=== PATIENT | male | born 1935 | race Caucasian/White ===

== ENCOUNTER 2018-01-08 10:58 | Emergency (ER) | payer OTHER ==
[~2018-01-08] VITALS: Ht 177.8 cm; Wt 79.0 kg
[~2018-01-08 10:58] MED LIST: ADVAI100I PO; CAPT25TA2 PO; FISH100020 PO; LOVA20TA PO; PLAV75TA PO; ST JTAB PO; ULTR50TA PO
[2018-01-08 11:01] VITALS: BP 203/77; PULSE 71; RESP 16; TEMP 97.4; O2SAT 96
--- NOTE | 2018-01-08 11:11 | PD ---
HPI Chief Complaint: GI Complaint Time Seen by Provider: 11:11 Travel History International Travel<30 days: No Contact w/Intl Traveler<30days: No Traveled to known affect area: No History of Present Illness HPI 82-year-old male came to the emergency room with history of black color stool for past week and a half. Patient says initially this started as a diarrhea which lasted for 2 days. The diarrhea is gone and now he has noticed that the stool has been dark in color. Today he called his primary care to let them know and they asked them to come to the emergency room to be examined. Patient is on Plavix. He also has history of colon cancer that was resected and treated 15 years ago. Patient has not had a colonoscopy in almost 5 years. Patient denies of any abdominal pain or nausea or vomiting. He was hypertensive in triage. Patient does not appear to be in any significant distress. Last bowel movement was last night. PFSH Past Medical History Narrative Medical List of his past medical, surgical, social and family history is reviewed from the nursing note. Hx Anticoagulant Therapy: Yes (PLAVIX) Arthritis: Yes Asthma: No Heart Rhythm Problems: No Cancer: Yes (COLON 2000) Cardiovascular Problems: No High Cholesterol: Yes (on medication ) Chemotherapy: Yes Chest Pain: No Congestive Heart Failure: No COPD: Yes Diabetes: No Diminished Hearing: Yes Endocrine: No Genitourinary: No Hepatitis: No Hiatal Hernia: No Hypertension: Yes (HX OF HIGH BLOOD PRESSURE) Immune Disorder: No Musculoskeletal: No Neurologic: No Psychiatric: No Reproductive: No Respiratory: Yes (COPD) Immunizations Current: Yes Radiation Therapy: Yes Sleep Apnea: No Thyroid Disease: No Past Surgical History Abdominal Surgery: Yes (COLECTOMY,LIH,) AICD: No Arteriovenous Shunt: No Cardiac Surgery: No Ear Surgery: No Endocrine Surgery: No Eye Surgery: Yes (CATARACT SX BILAT.) Genitourinary Surgery: No Gynecologic Surgery: No Insulin Pump: No Joint Replacement: No Oral Surgery: No Pacemaker: No Thoracic Surgery: No Other Surgery: Yes Social History Alcohol Use: Yes (APPROX 1 PER WEEK) Tobacco Use: Yes (/ PPD) Substance Use: No Allergies-Medications (Allergen,Severity, Reaction): Coded Allergies: No Known Allergies (Verified Adverse Reaction, Unknown, 01/08/18) Comments List of his allergies reviewed from the nursing note. Reported Meds & Prescriptions Reported Meds & Active Scripts Active Reported Plavix (Clopidogrel Bisulfate) 75 Mg Tab 75 Mg PO DAILY Advair Diskus 100/50 (Salmeterol Xinafoate/Fluticasone) Fluticasone/Salmeterol 100/50 Inh 1 Puff PO BID Capoten 25 mg (Captopril) 25 Mg Tab 1 Tab PO DAILY Fish Oil ([place]-3 Fatty Acids) 1,000 Mg Cap 1,000 Mg PO TID Ultram (Tramadol HCl) 50 Mg Tab 50 Mg PO BID Aspirin Ec Low Strength (Aspirin) 81 Mg Tab 81 Mg PO DAILY Lovastatin 20 Mg Tab 20 Mg PO HS Plavix (Clopidogrel Bisulfate) 75 Mg Tab 75 Mg PO DAILY Narrative Medication List of his home medications reviewed from the nursing note. Review of Systems Except as stated in HPI: all other systems reviewed are Neg Physical Exam Narrative GENERAL: Awake, alert, no obvious distress, elderly SKIN: Focused skin assessment warm/dry. HEAD: Atraumatic. Normocephalic. EYES: Pupils equal and round. No scleral icterus. No injection or drainage. ENT: No nasal bleeding or discharge. Mucous membranes pink and moist. NECK: Trachea midline. No JVD. CARDIOVASCULAR: Regular rate and rhythm. No murmur appreciated. RESPIRATORY: No accessory muscle use. Clear to auscultation. Breath sounds equal bilaterally. GASTROINTESTINAL: Abdomen soft, non-tender, nondistended. Hepatic and splenic margins not palpable. MUSCULOSKELETAL: No obvious deformities. No clubbing. No cyanosis. No edema. NEUROLOGICAL: Awake and alert. No obvious cranial nerve deficits. Motor grossly within normal limits. Normal speech. PSYCHIATRIC: Appropriate mood and affect; insight and judgment normal. Data Data Last Documented VS Vital Signs Date Time Temp Pulse Resp B/P (MAP) Pulse Ox O2 Delivery O2 Flow Rate FiO2 01/08/18 13:45 65 16 153/69 (97) 98 Room Air 01/08/18 11:01 97.4 Orders Orders Complete Blood Count With Diff (01/08/18 11:24) Comprehensive Metabolic Panel (01/08/18 11:24) Lipase (01/08/18 11:24) Prothrombin Time / Inr (Pt) (01/08/18 11:24) Ct Abd/Pel W Iv Contrast(Rout) (01/08/18 11:24) Iv Access Insert/Monitor (01/08/18 11:24) Ecg Monitoring (01/08/18 11:24) Oximetry (01/08/18 11:24) Sodium Chlor 0.9% 1000 Ml Inj (Ns 1000 M (01/08/18 11:24) Sodium Chloride 0.9% Flush (Ns Flush) (01/08/18 11:30) Diatrizoate Liq ([place] Liq) (01/08/18 11:29) Oral Contrast - Adult (01/08/18 11:45) Iohexol 350 Inj (Omnipaque 350 Inj) (01/08/18 12:57) Ed Discharge Order (01/08/18 13:30) Labs Laboratory Tests Test 01/08/18 11:25 White Blood Count 8.1 TH/MM3 Red Blood Count 4.35 MIL/MM3 Hemoglobin 12.3 GM/DL Hematocrit 37.7 % Mean Corpuscular Volume 86.6 FL Mean Corpuscular Hemoglobin 28.2 PG Mean Corpuscular Hemoglobin Concent 32.5 % Red Cell Distribution Width 15.4 % Platelet Count 299 TH/MM3 Mean Platelet Volume 7.2 FL Neutrophils (%) (Auto) 58.9 % Lymphocytes (%) (Auto) 23.3 % Monocytes (%) (Auto) 13.8 % Eosinophils (%) (Auto) 3.4 % Basophils (%) (Auto) 0.6 % Neutrophils # (Auto) 4.8 TH/MM3 Lymphocytes # (Auto) 1.9 TH/MM3 Monocytes # (Auto) 1.1 TH/MM3 Eosinophils # (Auto) 0.3 TH/MM3 Basophils # (Auto) 0.0 TH/MM3 CBC Comment DIFF FINAL Differential Comment Prothrombin Time 10.7 SEC Prothromb Time International Ratio 1.1 RATIO Blood Urea Nitrogen 15 MG/DL Creatinine 0.81 MG/DL Random Glucose 83 MG/DL Total Protein 7.1 GM/DL Albumin 3.6 GM/DL Calcium Level 8.6 MG/DL Alkaline Phosphatase 128 U/L Aspartate Amino Transf (AST/SGOT) 19 U/L Alanine Aminotransferase (ALT/SGPT) 21 U/L Total Bilirubin 0.2 MG/DL Sodium Level 136 MEQ/L Potassium Level 4.1 MEQ/L Chloride Level 102 MEQ/L Carbon Dioxide Level 28.4 MEQ/L Anion Gap 6 MEQ/L Estimat Glomerular Filtration Rate 91 ML/MIN Lipase 124 U/L [facility] Medical Decision Making Medical Screen Exam Complete: Yes Emergency Medical Condition: Yes Medical Record Reviewed: Yes Differential Diagnosis Upper GI bleed, lower GI bleed Narrative Course 1:04 PM blood test results of back and within acceptable limits. Awaiting for the CT of the abdomen and pelvis to be resulted. He was given 1 L of IV fluid bolus. If the CT is negative I'll discharge him home. He'll need to follow up with his primary care needs to refer him to a GI specialist or a colorectal surgeon for colonoscopy. 1:[address] scan report came back. As per the radiologist this an incidental finding of abdominal aortic aneurysm that in comparison from the past CT has grown in size from 3.4 to 4.4 centimeter. Other than that there aren't any significant findings. I've discussed this with the patient and his was present in the room this time. Patient is aware of his aortic aneurysm. He does have a physician who checks it. I have urged him to discuss this with that physician. I'll discharge him home at this point. Procedures EKG Prior to Arrival: No Diagnosis Primary Impression: Dark stools Additional Impression: Abdominal aortic aneurysm (AAA) >39 mm diameter Referrals: Primary Care Physician 3 days Additional Instructions: Please follow-up with your primary care physician Lala refer you to a GI specialist if his symptoms continue. He went to discuss about your abdominal aortic aneurysm with your vascular surgeon who is following up on the aneurysm annually. Return to the ER if the condition worsens or any other new concerns. Med/Other Pt SpecificInfo: No Change to Meds Disposition: 01 DISCHARGE HOME Condition: Stable Jonh Renae MD Jan 08, 2018 11:11
[2018-01-08] MEDS ORDERED: PLAV75TA29 PO (11:18)
[2018-01-08] MEDS ORDERED: SODIUM CHLOR 0.9% 1000 ML INJ 1,000 ML IV SCH (11:24)
[2018-01-08 11:27] VITALS: O2SAT 97
[2018-01-08] MEDS ORDERED: DIATRIZOATE MEGLUM/DIATRIZOATE SOD 9 ML CUP ONE (11:29)
[2018-01-08] MEDS ORDERED: SODIUM CHLORIDE 0.9% FLUSH 10 ML FLUSH IV FLUSH PRN (11:30)
[2018-01-08 11:35] LABS: WHITE BLOOD COUNT 8.1 TH/MM3 (4.0-11.0)
[2018-01-08 11:36] LABS: AUTOMATED NEUTROPHIL # 4.8 TH/MM3 (1.8-7.7); BASOPHIL % 0.6 % (0.0-2.0); EOSINOPHIL # 0.3 TH/MM3 (0-0.4); EOSINOPHIL % 3.4 % (0.0-4.0); HEMATOCRIT 37.7 % (39.0-51.0); HEMOGLOBIN 12.3 GM/DL (13.0-17.0); LYMPH % 23.3 % (9.0-44.0); LYMPHOCYTE # 1.9 TH/MM3 (1.0-4.8); MEAN CELL VOLUME 86.6 FL (80.0-100.0); MEAN CORPUSCULAR HEMOGLOBIN 28.2 PG (27.0-34.0); MEAN CORPUSCULAR HGB CONC 32.5 % (32.0-36.0); MEAN PLATELET VOLUME 7.2 FL (7.0-11.0); MONO % 13.8 % (0.0-8.0); MONOCYTE # 1.1 TH/MM3 (0-0.9); NEUT % 58.9 % (16.0-70.0); PLATELET COUNT 299 TH/MM3 (150-450); RED BLOOD COUNT 4.35 MIL/MM3 (4.50-5.90); RED CELL DISTRIBUTION WIDTH 15.4 % (11.6-17.2)
[2018-01-08 11:43] LABS: CHLORIDE 102 MEQ/L (98-107); SODIUM (NA) 136 MEQ/L (136-145)
[2018-01-08 11:46] LABS: CALCIUM 8.6 MG/DL (8.5-10.1); INTERNATIONAL NORMALIZED RATIO 1.1 RATIO; PROTHROMBIN TIME - PATIENT 10.7 SEC (9.8-11.6)
[2018-01-08 11:47] LABS: ALBUMIN 3.6 GM/DL (3.4-5.0); BICARBONATE 28.4 MEQ/L (21.0-32.0); BLOOD UREA NITROGEN 15 MG/DL (7-18); GLUCOSE,RANDOM 83 MG/DL (74-106)
[2018-01-08 11:50] LABS: ALT (GPT) 21 U/L (12-78); AST (GOT) 19 U/L (15-37); CREATININE 0.81 MG/DL (0.60-1.30); GLOMERULAR FILTRATION RATE 91 ML/MIN (>89)
[2018-01-08 11:52] LABS: TOTAL BILIRUBIN ADULT 0.2 MG/DL (0.2-1.0); TOTAL PROTEIN 7.1 GM/DL (6.4-8.2)
[2018-01-08 11:53] LABS: ALKALINE PHOSPHATASE 128 U/L (45-117)
[2018-01-08 12:06] VITALS: BP 165/84; PULSE 63; RESP 16; O2SAT 97
[2018-01-08] MEDS ORDERED: IOHEXOL 350 MG/ML 10 ML VIAL (for RAD DIAG) IVCONTRAST ONE (12:57)
--- NOTE | 2018-01-08 13:17 | RADRPT ---
EXAM DATE/TIME: 01/08/2018 12:47 [facility] COMPARISON: CT ABDOMEN & PELVIS W CONTRAST, July 21, 2010, 13:12. INDICATIONS : Abdominal pain with dark stool x 1 week. IV CONTRAST: 85 cc Omnipaque 350 (iohexol) IV ORAL CONTRAST: Prescribed oral contrast ingested. RADIATION DOSE: 12.29 CTDIvol (mGy) MEDICAL HISTORY : Carcinoma, colon. Peripheral vascular disease. Chronic obstructive pulmonary disease.Hypertension. SURGICAL HISTORY : Colon resection. Inguinal hernia repair. ENCOUNTER: Initial ACUITY: 1 week PAIN SCALE: 1/10 LOCATION: Abdomen TECHNIQUE: Volumetric scanning of the abdomen and pelvis was performed. Using automated exposure control and ad justment of the mA and/or kV according to patient size, radiation dose was kept as low as reasonably achievable to obtain optimal diagnostic quality images. DICOM format image data is available electro nically for review and comparison. FINDINGS: LOWER LUNGS: Diffuse centrilobular emphysema at the visualized lung bases with bibasilar scarring. LIVER: Homogeneous density without lesion. There is no dilation of the biliary tree. Redemonstration of mul tiple gallstones. Gallbladder is otherwise unremarkable by CT and contracted. SPLEEN: Normal size without lesion. PANCREAS: Within normal limits. KIDNEYS: Normal in size and shape. There is no mass, stone or hydronephrosis. ADRENAL GLANDS: Stable 1.5 cm left adrenal nodule. Residual gland is unremarkable. VASCULAR: Redemonstration of a fusiform infrarenal aortic aneurysm. The sac measures 4.4 cm and contains a smal l to moderate amount of mural thrombus. Overall, sac size is mildly enlarged from prior exam measurin g 3.9 cm. Densely calcified bilateral iliac arteries. BOWEL/MESENTERY: The stomach, small bowel, and colon demonstrate no acute abnormality. Oral contrast extends to the pr oximal transverse colon. No evidence for obstruction. No significant bowel wall thickening. There is no free intraperitoneal air or fluid. ABDOMINAL WALL: Within normal limits. RETROPERITONEUM: There is no lymphadenopathy. BLADDER: No wall thickening or mass. REPRODUCTIVE: Within normal limits. INGUINAL: There is no lymphadenopathy or hernia. MUSCULOSKELETAL: Degenerative changes of the spine without focal lytic or blastic bony abnormality. CONCLUSION: 1. No definitive CT findings to explain patient's symptoms. 2. Enlarging fusiform infrarenal abdominal aortic aneurysm in comparison to remote 2010 CT exam. The aneurysm sac has enlarged from 3.9 cm to 4.4 cm. 3. Stable indeterminate 1.5 cm left adrenal nodule. 4. Additional ancillary findings includes cholelithiasis, centrilobular emphysema in the lung bases, densely calcified iliac arteries and degenerative spondylosis of the lumbar spine. Marino Álvarez MD on January 08, 2018 at 13:04 Board Certified Radiologist. This report was verified electronically.
[2018-01-08 13:45] VITALS: BP 153/69; PULSE 65; RESP 16; O2SAT 98
== END 2018-01-08 13:51 | disposition home or self-care (01) ==
LOC: PHED 10:58
DX: R19.5 Other fecal abnormalities (principal); I71.4 Abdominal aortic aneurysm, without rupture; I10 Essential (primary) hypertension; I73.9 Peripheral vascular disease, unspecified; E78.00 Pure hypercholesterolemia, unspecified; J44.9 Chronic obstructive pulmonary disease, unspecified; F17.210 Nicotine dependence, cigarettes, uncomplicated; Z85.038 Personal history of other malignant neoplasm of large intestine; Z79.02 Long term (current) use of antithrombotics/antiplatelets; Z79.82 Long term (current) use of aspirin; Z79.899 Other long term (current) drug therapy
CPT/HCPCS: 74177; 80053; 83690; 85025; 85610; 96360; 96361; 99284; J7030; Q9963; Q9967